=== PATIENT | male | born 1940 | race Caucasian/White ===

== ENCOUNTER 2019-11-08 10:27 | Observation (INO) ==
[2019-10-30 14:41] LABS: HEMATOCRIT 39.5 % (42.0-52.0); HEMOGLOBIN 12.8 g/dL (14.0-18.0); MCH 31.6 PG (27-31); MCHC 32.4 g/dL (33-37); MCV 97.5 FL (81-99); MPV 10.5 FL (7.4-10.4); RBC 4.05 XMIL (4.7-6.1); RDW 14.4 % (11.5-14.5); WBC 7.24 X1000 (4.8-10.8)
[2019-10-30 14:54] LABS: INR 1.08; PROTIME 14.2 Seconds (11.0-16.0)
[2019-10-30 14:55] LABS: PTT 37.5 Seconds (22.3-41.8)
[2019-10-30 14:58] LABS: AGAP 11; BUN 22 mg/dL (8-22); CALCIUM 10.4 mg/dL (8.8-10.2); CHLORIDE 95 mmol/L (98-107); COSMO 272; ESTIMATED GFR > 60; GLUCOSE 210 mg/dL (70-104); POTASSIUM 4.6 mmol/L (3.5-5.1); SODIUM 131 mmol/L (136-145); TCO2 25 mmol/L (25-35)
[2019-11-08] MEDS ORDERED: PEPCID ONE (11:05)
[2019-11-08] MEDS ORDERED: LR 1,000 ML ONE (11:05)
[2019-11-08] MEDS ORDERED: KEFZOL 2 GM/D5W 2 GM/50 ML IVPB ONE (11:05)
[2019-11-08] MEDS ORDERED: NS 1,000 ML ONE ×2 (11:11→14:07)
[2019-11-08] MEDS ORDERED: B & O 15A SUPP ONE (12:41)
[2019-11-08] MEDS ORDERED: DIPRIVAN 1% ONE (13:09)
[2019-11-08] MEDS ORDERED: XYLOCAINE-MPF 2% ONE (13:09)
[2019-11-08] MEDS ORDERED: ZOFRAN ONE (13:09)
[2019-11-08] MEDS ORDERED: MORPHINE IV PRN (15:42)
[2019-11-08] MEDS ORDERED: LABETALOL IV PRN (15:45)
[2019-11-08] MEDS ORDERED: PHENERGAN PO PRN (15:45)
[2019-11-08] MEDS ORDERED: NORCO-10 PO PRN (15:45)
[2019-11-08] MEDS ORDERED: ZOFRAN IV PRN (15:45)
[2019-11-08] MEDS ORDERED: SODIUM CHLORIDE 0.9% INJ PRN (15:45)
[2019-11-08] MEDS ORDERED: NORCO-7.5 PO PRN (15:45)
[2019-11-08] MEDS ORDERED: OFIRMEV 1000 MG/ISOTONIC SOLN 1,000 MG/100 ML BOTTLE IV PRN (15:45)
[2019-11-08] MEDS ORDERED: PHENERGAN IV PRN (15:45)
[2019-11-08] MEDS ORDERED: PHENERGAN PR PRN (15:45)
[2019-11-08] MEDS ORDERED: DITROPAN PO PRN (15:45)
[2019-11-08] MEDS ORDERED: NORCO-5 PO PRN (15:45)
--- NOTE | 2019-11-08 19:06 | OPERATIVE NOTE ---
PROCEDURE DATE: 11/08/2019 SURGEON: Mk Weems MD PREOPERATIVE DIAGNOSES: 1. Benign prostatic hypertrophy. 2. Dribbling. POSTOPERATIVE DIAGNOSES: 1. Benign prostatic hypertrophy. 2. Dribbling. PROCEDURE: GreenLight transurethral vaporization of prostate. INDICATIONS: A 79-year-old male with significant BPH, who has had transurethral resection of the prostate in the past. He developed obstructive voiding symptoms and underwent evaluation with cystoscopy, which revealed partial prostatic regrowth as well as quite obstructive tissue distally, closer to the verumontanum. He was counseled on medications versus procedure, and wants to proceed with GreenLight transurethral vaporization. FINDINGS: The energy used was 122,803 joules. The power used was up to 140 theodore. Laser time was 50 minutes and 44 seconds. DESCRIPTION OF PROCEDURE: After obtaining informed consent, the patient was brought to the operating room. Perioperative antibiotics and laryngeal mask anesthesia were administered. He was placed in lithotomy position, prepped and draped in sterile fashion. A 23-Tajik resectoscope was introduced. His prostatic urethra showed partial prostatic regrowth and obstruction distally, close to the level of the verumontanum. The bladder showed moderate trabeculations. No sizable diverticula. No mucosal lesions. No stones within the bladder lumen. We then introduced a GreenLight laser fiber. I started at 80 W and addressed the adenoma circumferentially from bladder neck to level of verumontanum in 2 passes. The power was then increased to 140 W and the adenoma was treated. At the conclusion of the case, looking from the level of the verumontanum he had an excellent TUR defect. There was no evidence of active bleeding. The resectoscope was removed and a 20-Tajik 3-way coude Martinez catheter was introduced, with 30 mL of sterile water instilled in the balloon. The catheter was placed on light traction and connected to continuous bladder irrigation with normal saline. He was extubated and taken to PACU for recovery. ESTIMATED BLOOD LOSS: 10 mL COMPLICATIONS: None. DRAINS: A 20-Tajik 3-way coude Martinez catheter. SPECIMENS: None. DISPOSITION: To PACU and subsequently to floor for observation with continuous bladder irrigation. cc: Mk Weems MD
[2019-11-08] MEDS ORDERED: NEURONTIN PO SCH (21:00)
[2019-11-08] MEDS ORDERED: HUMALOG MIX 75/25 SUBQ SCH (21:00)
[2019-11-08] MEDS ORDERED: REMERON PO SCH (21:00)
[2019-11-08] MEDS: HUMULIN R SUBQ SCH (22:27)
[2019-11-08] MEDS: PERIDEX MT SCH (22:27)
[2019-11-08] MEDS: KEFZOL 2 GM/D5W 2 GM/50 ML IVPB IV SCH (22:27)
[2019-11-08] MEDS: COLACE PO SCH (22:27)
[2019-11-08] MEDS ORDERED: INSULIN PEN NEEDLES ONE (22:43)
[2019-11-08] MEDS: COREG PO SCH (22:43)
[2019-11-08] MEDS: NS 1,000 ML IV SCH (22:50)
[2019-11-09] MEDS: KEFZOL 2 GM/D5W 2 GM/50 ML IVPB IV SCH ×2 (06:32→12:13)
[2019-11-09] MEDS: HUMULIN R SUBQ SCH ×2 (06:42→11:05)
[2019-11-09] MEDS: NS 1,000 ML IV SCH (06:54)
[2019-11-09 07:24] LABS: HEMATOCRIT 38.4 % (42.0-52.0); HEMOGLOBIN 12.7 g/dL (14.0-18.0); MCH 32.6 PG (27-31); MCHC 33.1 g/dL (33-37); MCV 98.7 FL (81-99); MPV 11.2 FL (7.4-10.4); RBC 3.89 XMIL (4.7-6.1); RDW 14.5 % (11.5-14.5); WBC 8.05 X1000 (4.8-10.8)
[2019-11-09 07:40] LABS: AGAP 10; BUN 16 mg/dL (8-22); CALCIUM 9.6 mg/dL (8.8-10.2); CHLORIDE 102 mmol/L (98-107); COSMO 279; ESTIMATED GFR > 60; GLUCOSE 103 mg/dL (70-104); SODIUM 139 mmol/L (136-145); TCO2 27 mmol/L (25-35)
[2019-11-09] MEDS: COLACE PO SCH (08:16)
[2019-11-09] MEDS: COREG PO SCH (08:16)
[2019-11-09] MEDS: PERIDEX MT SCH (08:16)
[2019-11-09] MEDS ORDERED: THERA M PLUS PO SCH (09:00)
[2019-11-09] MEDS ORDERED: HUMALOG MIX 75/25 SUBQ SCH (09:00)
[2019-11-09] MEDS ORDERED: GLUCOPHAGE XR PO SCH (09:00)
[2019-11-09] MEDS ORDERED: COZAAR PO SCH (09:00)
[2019-11-09] MEDS ORDERED: ICAR-C PLUS PO SCH (09:00)
[2019-11-09 11:47] VITALS: BP 121/63
== END 2019-11-09 13:05 | disposition home or self-care (01) ==
LOC: OR 10:27 → 4N 10:27
PROVIDERS: ADMIT Urology; ATTEND Urology